=== PATIENT | female | born 1955 | race Caucasian/White ===

== ENCOUNTER 2016-06-28 07:42 | Outpatient (CLI) | payer BC | END 2016-06-28 18:54 | disposition home or self-care (01) | LOC: SMA 07:42 | PROVIDERS: ATTEND Family Medicine | DX: Z12.31 Encounter for screening mammogram for malignant neoplasm of breast (principal) | CPT/HCPCS: G0202 ==

== ENCOUNTER 2018-02-21 09:53 | Outpatient (CLI) | payer BC | END 2018-02-21 20:43 | disposition home or self-care (01) | LOC: SMA 09:53 | PROVIDERS: ATTEND Family Medicine | DX: Z12.31 Encounter for screening mammogram for malignant neoplasm of breast (principal) | CPT/HCPCS: 77067 ==

== ENCOUNTER 2022-01-01 11:25 | Emergency (ER) | payer OTHER, BC ==
[~2022-01-01] VITALS: Ht 172.7 cm; Wt 49.9 kg
[2022-01-01 11:30] VITALS: BP_SYST 100
[2022-01-01] MEDS ORDERED: NACL 0.9% 1,000 ML IV ONE (11:45)
--- NOTE | 2022-01-01 11:55 | NUR ---
Patient to ER bed 02 to gown for evaluation. Side rails up.
--- NOTE | 2022-01-01 12:00 | NUR ---
Pt brought by family from home, pt presents to ER with a aprox 10 secons syncopal episode this am while she was in the sofa, pt has Hx of alzheimer, intact ROM,no facial drop or any injuries noted, skin pink and warm, respirations even and unlabored, cap refill <3.
--- NOTE | 2022-01-01 12:05 | NUR ---
Dr Snyder evaluating patient at bedside
--- NOTE | 2022-01-01 12:07 | NUR ---
Per family she does not take any medications at home.
[2022-01-01 12:13] LABS: BASOPHILS % (AUTO) 0.7 % (0.0-2.0); EOSINOPHILS % (AUTO) 1.3 % (0.0-4.0); HEMATOCRIT 38.1 % (36-48); HEMOGLOBIN 13.2 g/dL (12.0-16.0); LYMPHOCYTES # (AUTO) 1.1 K/uL (1.0-5.5); MEAN CORPUSCULAR HEMOGLOBIN 31 pg (27-31); MEAN CORPUSCULAR HGB CONC 35 % (32-36); MEAN CORPUSCULAR VOLUME 89 fL (79.0-98.0); MONOCYTES # (AUTO) 0.3 K/uL (0.0-1.0); MONOCYTES % (AUTO) 7.9 % (1.7-9.3); NEUTROPHILS # (AUTO) 2.1 K/uL (1.8-7.7); NEUTROPHILS % (AUTO) 58.1 % (40.0-70.0); PLATELET COUNT (AUTO) 238 K/uL (130-430); RED BLOOD CELL COUNT(AUTO) 4.31 MIL/uL (4.2-6.2); RED CELL DISTRIBUTION WIDTH 13.4 % (9.0-15.0); WHITE BLOOD COUNT (AUTO) 3.5 K/uL (4.8-10.8)
[2022-01-01 12:28] LABS: ANION GAP 4 (5-15); CALCIUM 9.6 mg/dL (8.4-11.0); CHLORIDE 105 mmol/L (98-107); CREATININE 0.88 mg/dL (0.55-1.30); GLUCOSE 95 mg/dL (70-99); UREA NITROGEN, BLOOD 23 mg/dL (8-21)
[2022-01-01 12:29] LABS: GFR AFRICAN AMERICAN 82 mL/min (>90)
--- NOTE | 2022-01-01 12:37 | NUR ---
Pt off the unit for CT
[2022-01-01 12:45] LABS: ALANINE AMINOTRANSFERASE 21 U/L (12-78); ALBUMIN 3.7 g/dL (3.4-4.8); ASPARTATE AMINOTRANSFERASE 19 U/L (10-37); FREE T4 (FREE THYROXINE) 1.1 ng/dl (0.8-1.5); THYROID STIMULATING HORMONE 8.22 uIu/mL (0.36-3.74); TOTAL BILIRUBIN 0.4 mg/dL (0.0-1.0)
--- NOTE | 2022-01-01 13:27 | NUR ---
pt. to be admitted per Dr. Snyder Diagnosis: Syncope & Dimentia/Telle Waiting for insurance doc. from registration to initiate procedures.
--- NOTE | 2022-01-01 14:10 | NUR ---
Pt resting at this time, VSS, respirations even and unlabored, pt states she can not provide, family refusing urinary catheter, Dr Snyder notified.
[2022-01-01 14:23] VITALS: BP_SYST 100
--- NOTE | 2022-01-01 14:24 | NUR ---
Patient given written and verbal discharge instructions and verbalizes understanding. ER MD discussed with patient the results and treatment provided. Patient in stable condition. ID arm band removed. Rx of Syncope given. Patient educated on pain management and to follow up with PMD. Pain Scale 2/10. Opportunity for questions provided and answered. Medication side effect fact sheet provided.
== END 2022-01-01 14:24 | disposition home or self-care (01) ==
LOC: SED 11:25
DX: R55 Syncope and collapse (principal); R41.82 Altered mental status, unspecified; Z79.899 Other long term (current) drug therapy; Z20.822 Contact with and (suspected) exposure to COVID-19
CPT/HCPCS: 99285; 96360; 70450; 71045; 87426; 80053; 84439; 84443; 85025; 87040; 84484; 36415; 93005; 76376; J7030

== ENCOUNTER 2023-10-02 04:39 | Emergency (ER) | payer BC, OTHER ==
[~2023-10-02] VITALS: Ht 165.1 cm; Wt 61.2 kg
[2023-10-02 04:42] VITALS: BP_SYST 103; PULSE 66; RESP 20; TEMP 98; O2SAT 98
[2023-10-02 07:53] LABS: EOSINOPHILS # (AUTO) 0.2 K/uL (0.0-0.4); HEMOGLOBIN 12.8 g/dL (12.0-16.0); LYMPHOCYTES # (AUTO) 1.2 K/uL (1.0-5.5); MONOCYTES # (AUTO) 0.4 K/uL (0.0-1.0); MONOCYTES % (AUTO) 9.1 % (1.7-9.3)
[2023-10-02 07:55] LABS: EOSINOPHILS % (AUTO) 3.3 % (0.0-4.0); HEMATOCRIT 38.2 % (36-48); LYMPHOCYTES % (AUTO) 24.6 % (20.5-51.5); MEAN CORPUSCULAR HEMOGLOBIN 30 pg (27-31); MEAN CORPUSCULAR HGB CONC 34 % (32-36); MEAN CORPUSCULAR VOLUME 88 fL (79.0-98.0); PLATELET COUNT (AUTO) 278 K/uL (130-430); RED BLOOD CELL COUNT(AUTO) 4.35 MIL/uL (4.2-6.2); RED CELL DISTRIBUTION WIDTH 13.4 % (9.0-15.0); WHITE BLOOD COUNT (AUTO) 4.8 K/uL (4.8-10.8)
[2023-10-02 08:02] LABS: PROTHROMBIN TIME 10.9 SECS (9.5-12.5)
[2023-10-02 08:14] LABS: ALANINE AMINOTRANSFERASE 18 U/L (12-78); ALBUMIN 3.9 g/dL (3.4-4.8); ANION GAP 11 (5-15); ASPARTATE AMINOTRANSFERASE 21 U/L (10-37); BILIRUBIN,DIRECT 0.1 mg/dL (0.0-0.3); CALCIUM 9.9 mg/dL (8.4-11.0); CARBON DIOXIDE 25 mmol/L (23-29); CHLORIDE 105 mmol/L (98-107); CREATINE KINASE, TOTAL 124 U/L (26-192); CREATININE 0.73 mg/dL (0.55-1.30); GLUCOSE 91 mg/dL (74-106); POTASSIUM 3.9 mmol/L (3.5-5.1); SODIUM SERUM 141 mmol/L (136-145); TOTAL BILIRUBIN 0.7 mg/dL (0.0-1.0); TOTAL PROTEIN, SERUM 7.1 g/dL (6.4-8.3); UREA NITROGEN, BLOOD 25 mg/dL (8-21)
[2023-10-02 08:16] LABS: GFR AFRICAN AMERICAN 101 mL/min (>90); GFR NON AFRICAN-AMERICAN 84 mL/min (>90)
[2023-10-02] MEDS: DIPHTH,PERTUSS(ACELL),TET VAC 0.5 ML VIAL (Tdap) I.M. ONE (08:54)
[2023-10-02] MEDS: BACITRACIN 1 GM OINT TP ONE (08:54)
[2023-10-02 09:56] VITALS: BP_SYST 121; PULSE 69; RESP 16; TEMP 98; O2SAT 96
== END 2023-10-02 09:54 | disposition home or self-care (01) ==
LOC: SED 04:39
DX: S00.83XA Contusion of other part of head, initial encounter (principal); R53.1 Weakness; Z23 Encounter for immunization; W19.XXXA Unspecified fall, initial encounter; Y93.89 Activity, other specified; Y92.89 Other specified places as the place of occurrence of the external cause; Y99.8 Other external cause status
CPT/HCPCS: 36415; 70450-TC; 71045; 72125-TC; 80048; 80076; 82550; 83605; 84484; 85025; 85610; 85730; 90715; 93005; 99285